=== PATIENT | female | born 1950 | race Caucasian/White ===

== ENCOUNTER → 2016-10-09 | Outpatient (CLI) | payer MEDICARE | END | disposition home or self-care (01) | LOC: CFH 12:14 | PROVIDERS: ATTEND Internal Medicine | DX: Z12.31 Encounter for screening mammogram for malignant neoplasm of breast (principal) | CPT/HCPCS: G0202 ==

== ENCOUNTER 2018-09-02 20:57 | Emergency (ER) | payer MEDICARE ==
[~2018-09-02] VITALS: Ht 162.6 cm; Wt 70.0 kg
[2018-09-02 21:00] VITALS: BP 125/66
[2018-09-02] MEDS ORDERED: KETOROLAC 30 MG/1 ML ONE (21:57)
[2018-09-02] MEDS ORDERED: DIAZEPAM 5 MG TABLET ONE (21:57)
[2018-09-02] MEDS ORDERED: DIAZEPAM 5 MG TABLET PO ONE (22:00)
[2018-09-02] MEDS ORDERED: KETOROLAC 30 MG/1 ML IM ONE (22:00)
== END 2018-09-02 22:56 | disposition home or self-care (01) ==
LOC: ED 22:53
DX: G89.11 Acute pain due to trauma (principal); M25.552 Pain in left hip; W01.0XXA Fall on same level from slipping, tripping and stumbling without subsequent striking against object, initial encounter; Y93.89 Activity, other specified; Y92.89 Other specified places as the place of occurrence of the external cause; Y99.8 Other external cause status
CPT/HCPCS: 73502; 96372; 99283; J1885

== ENCOUNTER → 2019-01-19 | Outpatient (CLI) | payer MEDICARE | END | disposition home or self-care (01) | LOC: CFH 13:21 | PROVIDERS: ATTEND Internal Medicine | DX: Z12.31 Encounter for screening mammogram for malignant neoplasm of breast (principal) | CPT/HCPCS: 77063; 77067 ==